=== PATIENT | female | born 1955 | race Caucasian/White ===

== ENCOUNTER 2021-11-15 07:58 | Inpatient (IN) | payer MEDICAID ==
[~2021-11-15] VITALS: Ht 170.2 cm; Wt 118.4 kg
--- NOTE | 2021-11-15 07:58 | NUR ---
PT BIBRA 88 FROM HOME C/O ALTERED MENTAL STATUS. LAST KNOWN WELL LAST NIGHT UNKNOWN TIME. PT IS AAOX0, NOT IN RESPIRATORY DISTRESS, HOOKED TO O2 VIA NC AT 4LPM AND V/S MONITOR, KEPT RESTED AND COMFORTABLE. WILL CONTINUE TO MONITOR.
--- NOTE | 2021-11-15 08:00 | NUR ---
AT BEDSIDE FOR EVAL.
--- NOTE | 2021-11-15 08:01 | NUR ---
CALLED CODE STROKE
[2021-11-15] MEDS ORDERED: LORAZEPAM INJ 2 MG/ML VIAL IV ONE ×3 (08:02→08:55)
[2021-11-15] MEDS ORDERED: LORAZEPAM INJ 2 MG/ML VIAL ONE ×3 (08:03→08:56)
--- NOTE | 2021-11-15 08:05 | NUR ---
CALLED TELEMED NEUROLOGIST WILL BE DR. CHRISTY KHAN
--- NOTE | 2021-11-15 08:09 | NUR ---
DR. KHAN SPEAKING WITH DONALDO MESA.
--- NOTE | 2021-11-15 08:13 | NUR ---
CALLED FOR MIDLINE
[2021-11-15] MEDS ORDERED: ONDANSETRON HCL/PF 4 MG/2 ML VIAL ONE (08:19)
--- NOTE | 2021-11-15 08:19 | NUR ---
MIDLINE ETA 1030
--- NOTE | 2021-11-15 08:20 | NUR ---
DR. RONQUILLO SPEAKING WITH DONALDO MESA.
[2021-11-15] MEDS ORDERED: ATOR10TA PO (08:22)
[2021-11-15] MEDS ORDERED: METF-440 PO (08:22)
[2021-11-15] MEDS ORDERED: LEVE500T9 PO (08:22)
[2021-11-15] MEDS ORDERED: DEXA4TAB PO (08:22)
[2021-11-15] MEDS ORDERED: AMLO2.5T4 PO (08:22)
--- NOTE | 2021-11-15 08:27 | NUR ---
MOVE SHEET SUBMITTED.
[2021-11-15 08:29] LABS: BASOPHILS % (AUTO) 0.3 % (0.0-2.0); EOSINOPHILS % (AUTO) 0.1 % (0.0-6.0); HEMATOCRIT 42 % (33-45); HEMOGLOBIN 13.8 g/dL (11.5-14.8); LYMPHOCYTES # (AUTO) 4.4 K/uL (0.8-4.8); LYMPHOCYTES % (AUTO) 37.4 % (20.0-44.0); MEAN CORPUSCULAR HGB CONC 33 g/dl (31.0-36.0); MEAN CORPUSCULAR VOLUME 95 fL (82-100); MONOCYTES # (AUTO) 0.7 K/uL (0.1-1.30); MONOCYTES % (AUTO) 6.2 % (2.0-12.0); NEUTROPHILS # (AUTO) 6.5 K/uL (1.8-8.9); PLATELET COUNT (AUTO) 310 K/uL (150-450); RED BLOOD CELL COUNT(AUTO) 4.41 MIL/uL (4.0-5.2); WHITE BLOOD COUNT (AUTO) 11.7 K/uL (4.3-11.0)
[2021-11-15] MEDS ORDERED: ONDANSETRON HCL/PF 4 MG/2 ML VIAL IVP ONE (08:30)
[2021-11-15] MEDS ORDERED: IV NS 0.9% 1,000 ML BAG IV ONE ×2 (08:30→09:00)
--- NOTE | 2021-11-15 08:30 | NUR ---
PT RECTAL TEMP 99.4F
[2021-11-15 08:46] LABS: CARBON DIOXIDE 29 mmol/L (21-32); CHLORIDE 100 mmol/L (98-107); CREATININE 1.1 mg/dL (0.6-1.3); POTASSIUM 3.6 mmol/L (3.5-5.1); SODIUM SERUM 137 mmol/L (136-145); UREA NITROGEN, BLOOD 15 mg/dL (7-18)
--- NOTE | 2021-11-15 08:48 | NUR ---
LAB CALLED BG [phone] RN WILVER NOTIFIED.
--- NOTE | 2021-11-15 08:50 | NUR ---
CANDIS IS [facility] [phone]
[2021-11-15 08:51] LABS: ALANINE AMINOTRANSFERASE 36 U/L (12-78); ALBUMIN 3.3 g/dL (3.4-5.0); ALKALINE PHOSPHATASE 87 U/L (46-116); ASPARTATE AMINOTRANSFERASE 15 U/L (15-37); BILIRUBIN,DIRECT 0.2 mg/dL (0.0-0.2); BILIRUBIN,TOTAL 0.5 mg/dL (0.2-1.0); TOTAL PROTEIN, SERUM 7.1 g/dL (6.4-8.2)
--- NOTE | 2021-11-15 08:52 | NUR ---
COVID ANTIGEN SWAB DONE AND SENT TO THE LAB
[2021-11-15 08:54] LABS: GLUCOSE 419 mg/dL (74-106)
[2021-11-15] MEDS ORDERED: LEVETIRACETAM IV ONE (09:00)
[2021-11-15] MEDS ORDERED: NS 0.9% IV ONE (09:00)
[2021-11-15] MEDS ORDERED: POTASSIUM CL. PREMIX PERIPHER. 100 ML ONE (09:11)
[2021-11-15] MEDS: POTASSIUM CL. PREMIX PERIPHER. 50 ML IV SCH ×2 (09:15→10:16)
[2021-11-15] MEDS ORDERED: DOCU-141 PO (09:16)
[2021-11-15] MEDS ORDERED: FAMO20TA8 PO (09:16)
[2021-11-15] MEDS ORDERED: INSULIN REGULAR, HUMAN 100 UNIT/ML 10 ML VIAL IV ONE (09:30)
[2021-11-15] MEDS ORDERED: INSULIN REGULAR, HUMAN 100 UNIT/ML 10 ML VIAL ONE (09:30)
[2021-11-15] MEDS ORDERED: POTASSIUM CL. PREMIX PERIPHER. 50 ML IV SCH (09:30)
--- NOTE | 2021-11-15 09:48 | NUR ---
[facility] CALLED WIRE WHEELER PAGED.
[2021-11-15] MEDS ORDERED: ACETAMINOPHEN 325 MG TABLET PO PRN (10:00)
[2021-11-15] MEDS ORDERED: LORAZEPAM INJ 2 MG/ML VIAL IV PRN (10:00)
[2021-11-15] MEDS ORDERED: ONDANSETRON HCL/PF 4 MG/2 ML VIAL IVP PRN (10:00)
[2021-11-15] MEDS ORDERED: DEXTROSE 50%-WATER 50 ML DISP.SYRIN IV PRN (10:00)
--- NOTE | 2021-11-15 10:00 | NUR ---
SEEN BY CARMELITA PAT
--- NOTE | 2021-11-15 10:33 | NUR ---
MID LINE RN AT BEDSIDE.
[2021-11-15 10:48] LABS: BILIRUBIN,URINE NEGATIVE (NEGATIVE); COLOR,URINE YELLOW (YELLOW); LEUKOCYTE ESTERASE ,URINE NEGATIVE (NEGATIVE); NITRITE, URINE NEGATIVE (NEGATIVE); PROTEIN,URINE NEGATIVE (NEGATIVE); UGLUCOSE >=1000 mg/dL (NEGATIVE); UROBILINOGEN,URINE 0.2 EU/dL (0.2)
[2021-11-15 11:47] LABS: RBC,URINE NONE SEEN /HPF (0-2); WBC,URINE NONE SEEN /HPF (0-3)
[2021-11-15 11:48] LABS: BACTERIA,URINE None seen /HPF (None Seen); SQUAMOUS EPITHELIAL CELL,UR None Seen /HPF (None Seen)
[2021-11-15] MEDS ORDERED: AZITHROMYCIN 500 MG in IV D5W 250 ML IV ONE (12:00)
[2021-11-15] MEDS ORDERED: CEFTRIAXONE 1GM BAG (ER ONLY) 1 GM/50 ML PIGGYBACK IV ONE (12:00)
[2021-11-15] MEDS ORDERED: CEFTRIAXONE 1GM BAG (ER ONLY) 50 ML IV ONE (12:18)
[2021-11-15] MEDS: BLOOD SUGAR DIAGNOSTIC 1 EACH STRIP IN SCH (13:00)
[2021-11-15] MEDS: INSULIN REGULAR, HUMAN 100 UNIT/ML 3 ML VIAL SQ PRN (13:00)
[2021-11-15] MEDS ORDERED: ENOXAPARIN SODIUM 40 MG/0.4 ML DISP.SYRIN SQ ONE (13:08)
[2021-11-15] MEDS: ENOXAPARIN SODIUM 40 MG/0.4 ML DISP.SYRIN SQ SCH (13:12)
--- NOTE | 2021-11-15 13:13 | NUR ---
PATIENT STILL SLEEPY BUT OPENS EYES WHEN NAME IS CALLED
--- NOTE | 2021-11-15 13:53 | NUR ---
1400 ML URINE OUTPUT
[2021-11-15] MEDS: IV NS 0.9% 1,000 ML IV PRN (14:05)
--- NOTE | 2021-11-15 14:42 | NUR ---
PER HOUSE SUP NO ROOM AVAILABLE FOR ADMISSION.
--- NOTE | 2021-11-15 17:56 | NUR ---
DAUGHTER CANDIS CALLED FOR UPDATE
--- NOTE | 2021-11-15 18:32 | NUR ---
ROOM 107-2
--- NOTE | 2021-11-15 18:54 | NUR ---
PER NURSING SUP TO GIVE REPORT AFTER CHANGE OF SHIFT
--- NOTE | 2021-11-15 19:57 | NUR ---
REPORT GIVEN TO NURSE CARREON FOR VIRA
--- NOTE | 2021-11-15 19:58 | NUR ---
MIDLINE NURSE ETA 2200 PER NURSE SUPV
[2021-11-15 20:00] VITALS: BP 105/63
--- NOTE | 2021-11-15 20:10 | NUR ---
2009 ADMITTED FROM ER 66 YEAR OLD FEMALE VIA [place] WITH DX OF BREAKTHROUGH SEIZURE. PATIENT WITH EYES CLOSED BUT OPEN EASILY WHEN NAME CALLED. ABLE TO FOLLOW SIMPLE COMMANDS. ON ROOM AIR WITH NO SIGNS OF DISTRESS NOTED. ADMISSION CARE RENDERED. SKIN ASSESSMENT DONE. NOTED WITH MULTIPLE BRUISING ON LEFT ARM, AND EXCORIATION ON PERINEAL AREA. NO IV ACCESS NOTED ON PATIENT AND PER REPORT PATIENT PULLED OUT IV LINES IN ER. AWAITING MIDLINE INSERTION. CONNECTED TO HUMAN RESOURCE STATISTICIAN. NSR IN THE 60S. ALL SIDE RAILS PADDED FOR SEIZURE PRECAUTION. HOB ELEVATED AND CALLED LIGHT PLACED WITHIN REACH.
[2021-11-16] VITALS: BP 120/82
[2021-11-16] MEDS: BLOOD SUGAR DIAGNOSTIC 1 EACH STRIP IN SCH ×6 (00:27→22:51)
[2021-11-16] MEDS: INSULIN REGULAR, HUMAN 100 UNIT/ML 3 ML VIAL SQ PRN ×5 (00:33→22:44)
--- NOTE | 2021-11-16 00:34 | NUR ---
RN NOTE PT BS WAS 198. WITHHELD INSULIN SINCE PTS IS NPO AND HAS NO IV FLUIDS. CHARGE NURSE INFORMED AND AWARE.
[2021-11-16 04:00] VITALS: BP 119/86
[2021-11-16 06:21] LABS: BASOPHILS # (AUTO) 0.1 K/uL (0.0-0.2); BASOPHILS % (AUTO) 0.7 % (0.0-2.0); EOSINOPHILS % (AUTO) 0.7 % (0.0-6.0); HEMATOCRIT 38 % (33-45); HEMOGLOBIN 12.7 g/dL (11.5-14.8); LYMPHOCYTES # (AUTO) 3.3 K/uL (0.8-4.8); LYMPHOCYTES % (AUTO) 38.9 % (20.0-44.0); MEAN CORPUSCULAR HGB CONC 34 g/dl (31.0-36.0); MEAN CORPUSCULAR VOLUME 93 fL (82-100); MONOCYTES # (AUTO) 0.7 K/uL (0.1-1.30); MONOCYTES % (AUTO) 7.7 % (2.0-12.0); NEUTROPHILS # (AUTO) 4.4 K/uL (1.8-8.9); PLATELET COUNT (AUTO) 274 K/uL (150-450); RED BLOOD CELL COUNT(AUTO) 4.05 MIL/uL (4.0-5.2); WHITE BLOOD COUNT (AUTO) 8.5 K/uL (4.3-11.0)
[2021-11-16] MEDS ORDERED: INSULIN REGULAR, HUMAN 100 UNIT/ML 3 ML VIAL ONE (06:27)
[2021-11-16 06:59] LABS: CALCIUM, SERUM 8.4 mg/dL (8.5-10.1); CREATININE 0.8 mg/dL (0.6-1.3); MAGNESIUM 1.9 mg/dL (1.8-2.4); PHOSPHORUS 3.8 mg/dL (2.5-4.9)
--- NOTE | 2021-11-16 07:01 | NUR ---
RN CLOSING NOTE NO SIGNIFICANT CHANGE THROUGHOUT THE SHIFT. PT IN BED, A/O X 1. PT SPEAKS A DIFFERENT LANGUAGE BUT CAN RESPOND WHEN ASKED ABOUT HER NAME. PT REMOVED ALL HER IV LINES. STILL WAITING FOR THE MIDLINER. PT IS NPO. ON CARSON CATHETER DRAINING BY GRAVITY WITH YELLOW URINE. ALL NEEDS ATTENDED TO. SAFETY MEASURES IMPLEMENTED. BED IN LOWEST POSITION, LOCKED. BED ALARM ON. WILL ENDORSE TO AM SHIFT NURSE FOR VIRA.
--- NOTE | 2021-11-16 07:27 | NUR ---
zhane rn note patient in bed resting comfortably at this time, on 4l nc no sob noted at this time, alert with confusion , on npo status s at this time, bed in lowest and locked position , call light within reach, will cont to monitor closely
[2021-11-16 08:00] VITALS: BP 168/96
[2021-11-16] MEDS: IV NS 0.9% 1,000 ML IV PRN ×2 (09:49→23:50)
--- NOTE | 2021-11-16 10:15 | NUR ---
zhane rn note midline inserted lt upper arm by piccline nurse, ivf started as ordered
--- NOTE | 2021-11-16 10:29 | NUR ---
zhane stafford per bibiana rodriguez to give diet Addendum: 11/16/21 at 1151 by TERRY TRAMMELL RN per Maureen rodriguez to start diet
--- NOTE | 2021-11-16 11:52 | NUR ---
television reporter note spoke with pharmacy notified that k 3.0 stated that will to replace , will f\u
[2021-11-16 12:00] VITALS: BP 108/60
[2021-11-16] MEDS: ENOXAPARIN SODIUM 40 MG/0.4 ML DISP.SYRIN SQ SCH (12:46)
[2021-11-16] MEDS: POTASSIUM CHLORIDE 20 MEQ TAB.PRT.SR PO SCH ×3 (12:46→15:18)
[2021-11-16] MEDS: AMLODIPINE BESYLATE 2.5 MG TABLET PO SCH (13:30)
[2021-11-16] MEDS ORDERED: DEXTROSE 50%-WATER 50 ML DISP.SYRIN IV PRN (13:30)
[2021-11-16] MEDS: FAMOTIDINE (20 MG) 20 MG TABLET PO SCH ×2 (14:13→17:22)
[2021-11-16] MEDS: DOCUSATE SODIUM 100 MG CAPSULE PO SCH ×2 (14:13→17:23)
[2021-11-16] MEDS: LEVETIRACETAM (250 MG) 250 MG TABLET PO SCH ×3 (14:27→21:51)
[2021-11-16 16:00] VITALS: BP 161/86
[2021-11-16] MEDS: DEXAMETHASONE 1 MG TABLET PO SCH (17:22)
[2021-11-16] MEDS: METFORMIN 500 MG TABLET PO SCH (17:23)
--- NOTE | 2021-11-16 17:29 | NUR ---
rn telehealth note dr stokes neurologist at bedside updated patient condition ordered changed Keppra 1500mg q12 hour and egg also notified that ltb yey with drainage and inflamed, Maureen Sampson notified also that lt eye inflamed and small drainage noted stated that will order something will f\u
[2021-11-16] MEDS: ATORVASTATIN 10 MG TABLET PO SCH (18:11)
[2021-11-16] MEDS: TOBRAMYCIN OPHTH 5ML 5 ML BOTTLE LEFTEYE SCH ×2 (18:50→21:17)
--- NOTE | 2021-11-16 18:50 | NUR ---
telemarketing agent note eeg at bedside family at bedside, all needs attended
--- NOTE | 2021-11-16 19:50 | NUR ---
RN NOTE PATIENT RESTING IN BED, OPENS EYES TO NAME. ON ROOM AIR, NO SOB NOTED. RESPIRATIONS EVEN AND UNLABORED. DENIES ANY PAIN. CARSON CATH IN PLACE, DRAINING VIA GRAVITY. IV ACCESS ON LEFT ARM MIDLINE, PATENT AND INTACT. WITH NS @ 75CC/HR. NO INFILTRATION NOTED. BED LOCKED AND IN LOWEST POSITION. CALL LIGHT WITHIN REACH. ALL NEEDS ANTICIPATED.
[2021-11-16 20:00] VITALS: BP 184/101
[2021-11-16] MEDS: MUPIROCIN OINT 2% 22 GM TUBE TP SCH (21:15)
[2021-11-16] MEDS: hydrALAZINE HCL IV 20 MG VIAL IV PRN (23:45)
[2021-11-17] VITALS: BP 177/96
[2021-11-17] MEDS: TOBRAMYCIN OPHTH 5ML 5 ML BOTTLE LEFTEYE SCH ×6 (00:51→20:59)
[2021-11-17 04:00] VITALS: BP 158/92
[2021-11-17 06:31] LABS: CALCIUM, SERUM 7.9 mg/dL (8.5-10.1); CREATININE 0.9 mg/dL (0.6-1.3); MAGNESIUM 1.7 mg/dL (1.8-2.4); POTASSIUM 3.3 mmol/L (3.5-5.1)
[2021-11-17 06:45] LABS: BASOPHILS # (AUTO) 0.1 K/uL (0.0-0.2); BASOPHILS % (AUTO) 0.7 % (0.0-2.0); EOSINOPHILS % (AUTO) 0.1 % (0.0-6.0); HEMATOCRIT 40 % (33-45); HEMOGLOBIN 13.1 g/dL (11.5-14.8); LYMPHOCYTES # (AUTO) 2.6 K/uL (0.8-4.8); LYMPHOCYTES % (AUTO) 30.5 % (20.0-44.0); MEAN CORPUSCULAR HGB CONC 33 g/dl (31.0-36.0); MEAN CORPUSCULAR VOLUME 93 fL (82-100); MONOCYTES # (AUTO) 0.8 K/uL (0.1-1.30); MONOCYTES % (AUTO) 8.8 % (2.0-12.0); NEUTROPHILS # (AUTO) 5.2 K/uL (1.8-8.9); NEUTROPHILS % (AUTO) 59.9 % (43.0-81.0); PLATELET COUNT (AUTO) 315 K/uL (150-450); RED BLOOD CELL COUNT(AUTO) 4.27 MIL/uL (4.0-5.2); WHITE BLOOD COUNT (AUTO) 8.6 K/uL (4.3-11.0)
--- NOTE | 2021-11-17 06:51 | NUR ---
RN NOTE PATIENT RESTING IN BED, OPENS EYES TO NAME. ON ROOM AIR, NO SOB NOTED. NO SIGNIFICANT CHANGES DURING THIS SHIFT. CARSON CATH IN PLACE, OUTPUT OF 1000CC. IV ACCESS ON LEFT ARM MIDLINE, PATENT AND INTACT, INFUSING NS @ 75CC/HR. TURNED AND REPOSITIONED. KEPT CLEAN AND DRY. BED LOCKED AND IN LOWEST POSITION. CALL LIGHT WITHIN REACH. WILL ENDORSE TO AM SHIFT.
[2021-11-17 08:00] VITALS: BP 150/87
--- NOTE | 2021-11-17 08:00 | NUR ---
RN OPENING NOTE PATIENT RESTING IN BED, OPENS EYES TO NAME. ON ROOM AIR, NO SOB NOTED. RESPIRATIONS EVEN AND UNLABORED. DENIES ANY PAIN. CARSON CATH IN PLACE, DRAINING VIA GRAVITY. IV ACCESS ON LEFT ARM MIDLINE, PATENT AND INTACT. WITH NS @ 75CC/HR. NO INFILTRATION NOTED. BILATERAL WRIST RESTRAINTS ON CIRCULATION CHECKED NO COMPROMISE NOTED, BED LOCKED AND IN LOWEST POSITION. CALL LIGHT WITHIN REACH.
[2021-11-17] MEDS: BLOOD SUGAR DIAGNOSTIC 1 EACH STRIP IN SCH ×4 (08:22→21:05)
--- NOTE | 2021-11-17 08:33 | NUR ---
RN NOTE PATIENT NOTED TO HAVE 2 KEPPRA ORDERS AT 0900. CALLED PHARMACY PER PHARMACIST FOLLOW ORDER FOR KEPPRA 6TABLES. ORDERS FOLLOWED
[2021-11-17] MEDS: DOCUSATE SODIUM 100 MG CAPSULE PO SCH ×2 (08:39→17:18)
[2021-11-17] MEDS: FAMOTIDINE (20 MG) 20 MG TABLET PO SCH ×2 (08:39→17:18)
[2021-11-17] MEDS: METFORMIN 500 MG TABLET PO SCH ×2 (08:39→17:18)
[2021-11-17] MEDS: DEXAMETHASONE 1 MG TABLET PO SCH ×2 (08:39→17:18)
[2021-11-17] MEDS: AMLODIPINE BESYLATE 2.5 MG TABLET PO SCH (08:39)
[2021-11-17] MEDS: MUPIROCIN OINT 2% 22 GM TUBE TP SCH ×2 (08:40→20:59)
[2021-11-17] MEDS: LEVETIRACETAM (250 MG) 250 MG TABLET PO SCH ×2 (08:40→20:58)
[2021-11-17] MEDS: INSULIN REGULAR, HUMAN 100 UNIT/ML 3 ML VIAL SQ PRN ×4 (08:48→21:05)
[2021-11-17] MEDS ORDERED: POTASSIUM CHLORIDE 20 MEQ TAB.PRT.SR PO SCH (09:30)
[2021-11-17] MEDS: Magnesium 1GM/D5W 100ML PREMIX 100 ML IV SCH ×2 (10:24→11:26)
[2021-11-17 12:00] VITALS: BP 146/82
[2021-11-17] MEDS: ENOXAPARIN SODIUM 40 MG/0.4 ML DISP.SYRIN SQ SCH (13:18)
[2021-11-17 16:00] VITALS: BP 172/96
[2021-11-17] MEDS ORDERED: GADOTERATE MEGLUMINE 5 MMOL/10 ML VIAL IV ONE (17:09)
[2021-11-17] MEDS ORDERED: GADOTERATE MEGLUMINE 10 MMOL/20 ML VIAL IV ONE (17:09)
[2021-11-17] MEDS: ATORVASTATIN 10 MG TABLET PO SCH (17:18)
[2021-11-17] MEDS: IV NS 0.9% 1,000 ML IV PRN (18:12)
--- NOTE | 2021-11-17 19:15 | NUR ---
RN NOTE PT RECEIVED IN BED, FAMILY AT BEDSIDE. PT IS CURRENTLY ON RA SHOWING NO S/SX OF RESP DISTRESS/SOB. BREATHING EVEN AND UNLABORED. PT IS CONFUSED, A/OX1. ON SAW OFFBEARER SHOWING NSR. CARSON CATH NOTED DRAINING YELLOW COLORED URINE. IV ACCESS NOTED ON LEFT UPPER ARM ML INFUSING 0.9% NS AT 75 CC/HR. LINE FLUSHED, PATENT, AND INTACT WITH NO SIGNS OF INFILTRATION. ALL SAFETY MEASURES IMPLEMENTED. HOB ELEVATED. CALL LIGHT WITHIN REACH. BED LOCKED AND IN LOWEST POSITION. WILL CONTINUE TO MONITOR AND ASSESS FOR ANY CHANGES DURING SHIFT.
--- NOTE | 2021-11-17 19:15 | NUR ---
RN CLOSING NOTE NO SIGNIFICANT CHANGE THROUGHOUT THE SHIFT. PT IN BED, A/O X 1. PT SPEAKS A DIFFERENT LANGUAGE BUT CAN RESPOND WHEN ASKED ABOUT HER NAME. PT REMOVED ALL HER IV LINES. STILL WAITING FOR THE MIDLINER. . ON CARSON CATHETER DRAINING BY GRAVITY WITH YELLOW URINE. ALL NEEDS ATTENDED TO. SAFETY MEASURES IMPLEMENTED. BED IN LOWEST POSITION, LOCKED. BED ALARM ON. WILL ENDORSE TO AM SHIFT NURSE FOR VIRA.
[2021-11-17 20:00] VITALS: BP 185/129
[2021-11-17] MEDS: hydrALAZINE HCL IV 20 MG VIAL IV PRN (20:58)
[2021-11-18] VITALS: BP 163/84
[2021-11-18] MEDS: TOBRAMYCIN OPHTH 5ML 5 ML BOTTLE LEFTEYE SCH ×6 (01:16→20:13)
[2021-11-18 04:00] VITALS: BP 145/76
[2021-11-18 06:28] LABS: BASOPHILS % (AUTO) 0.3 % (0.0-2.0); HEMATOCRIT 37 % (33-45); HEMOGLOBIN 12.5 g/dL (11.5-14.8); LYMPHOCYTES # (AUTO) 1.5 K/uL (0.8-4.8); LYMPHOCYTES % (AUTO) 22.3 % (20.0-44.0); MEAN CORPUSCULAR HGB CONC 34 g/dl (31.0-36.0); MEAN CORPUSCULAR VOLUME 92 fL (82-100); MONOCYTES # (AUTO) 0.4 K/uL (0.1-1.30); MONOCYTES % (AUTO) 5.1 % (2.0-12.0); NEUTROPHILS % (AUTO) 72.3 % (43.0-81.0); PLATELET COUNT (AUTO) 303 K/uL (150-450); RED BLOOD CELL COUNT(AUTO) 3.95 MIL/uL (4.0-5.2); WHITE BLOOD COUNT (AUTO) 6.9 K/uL (4.3-11.0)
--- NOTE | 2021-11-18 06:43 | NUR ---
RN NOTE NO CHANGES IN PT CONDITION DURING SHIFT. PT IS CURRENTLY ON RA SHOWING NO S/SX OF RESP DISTRESS/SOB. BREATHING EVEN AND UNLABORED. IV ACCESS NOTED ON LEFT UPPER ARM ML INFUSING 0.9% NS AT 75 CC/HR. ALL SAFETY MEASURES IMPLEMENTED. HOB ELEVATED. CALL LIGHT WITHIN REACH. BED LOCKED AND IN LOWEST POSITION. ALL DUE MEDS GIVEN ORDERED. WILL ENDORSE TO MORNING SHIFT RN FOR VIRA.
[2021-11-18 07:12] LABS: CALCIUM, SERUM 8.3 mg/dL (8.5-10.1); CREATININE 0.9 mg/dL (0.6-1.3); MAGNESIUM 2.1 mg/dL (1.8-2.4); PHOSPHORUS 2.8 mg/dL (2.5-4.9); POTASSIUM 3.5 mmol/L (3.5-5.1)
--- NOTE | 2021-11-18 07:32 | NUR ---
RN OPENING NOTES: RECEIVED PT IN BED, AWAKE ALERT X 1-2 WITH PERIODS OF CONFUSION, PT IS CURRENTLY ON RA SHOWING NO S/SX OF RESP DISTRESS/SOB. BREATHING EVEN AND UNLABORED. ON SALES ESTIMATOR SHOWING NSR. CARSON CATH NOTED DRAINING YELLOW COLORED URINE. IV ACCESS NOTED ON LEFT UPPER ARM ML INFUSING 0.9% NS AT 75 CC/HR. LINE FLUSHED, PATENT, AND INTACT WITH NO SIGNS OF INFILTRATION. ALL SAFETY MEASURES IMPLEMENTED. HOB ELEVATED. CALL LIGHT WITHIN REACH. BED LOCKED AND IN LOWEST POSITION. WILL CONTINUE TO MONITOR
[2021-11-18 08:00] VITALS: BP 170/100
[2021-11-18] MEDS: BLOOD SUGAR DIAGNOSTIC 1 EACH STRIP IN SCH ×4 (08:18→21:22)
[2021-11-18] MEDS: INSULIN REGULAR, HUMAN 100 UNIT/ML 3 ML VIAL SQ PRN ×4 (08:21→21:24)
[2021-11-18] MEDS: IV NS 0.9% 1,000 ML IV PRN (08:35)
[2021-11-18] MEDS: AMLODIPINE BESYLATE 2.5 MG TABLET PO SCH (08:36)
[2021-11-18] MEDS: METFORMIN 500 MG TABLET PO SCH ×2 (08:37→16:57)
[2021-11-18] MEDS: DEXAMETHASONE 1 MG TABLET PO SCH ×2 (08:37→16:59)
[2021-11-18] MEDS: DOCUSATE SODIUM 100 MG CAPSULE PO SCH ×2 (08:37→16:59)
[2021-11-18] MEDS: LEVETIRACETAM (250 MG) 250 MG TABLET PO SCH ×2 (08:37→20:13)
[2021-11-18] MEDS: FAMOTIDINE (20 MG) 20 MG TABLET PO SCH ×2 (08:37→16:56)
[2021-11-18] MEDS: MUPIROCIN OINT 2% 22 GM TUBE TP SCH ×2 (08:38→20:13)
[2021-11-18 12:00] VITALS: BP 154/95
[2021-11-18] MEDS: ENOXAPARIN SODIUM 40 MG/0.4 ML DISP.SYRIN SQ SCH (13:07)
[2021-11-18 16:00] VITALS: BP 166/94
[2021-11-18] MEDS: ATORVASTATIN 10 MG TABLET PO SCH (17:44)
--- NOTE | 2021-11-18 19:30 | NUR ---
RN CLOSING NOTES: . PT IN BED, A/O X2-3..LEFT UPPER ARM MIDLINE INTACT PATENT WITH IVF OF NS AT 75CC/HR . PATIENT INSISTED TO GO TO BATHROOM ASSISTED HER TO THE BATHROOM WAS ABLE TO WALK WITH WALKER AND HAD BM . ON CARSON CATHETER DRAINING BY GRAVITY WITH YELLOW URINE. ALL NEEDS ATTENDED TO. SAFETY MEASURES IMPLEMENTED. BED IN LOWEST POSITION, LOCKED. BED ALARM ON. WILL ENDORSE TO DATA COMMUNICATIONS TECHNICIAN NURSE FOR VIRA.
[2021-11-18 20:26] VITALS: BP 137/91
[2021-11-19] VITALS: BP 123/68
[2021-11-19] MEDS: IV NS 0.9% 1,000 ML IV PRN (00:56)
[2021-11-19] MEDS: TOBRAMYCIN OPHTH 5ML 5 ML BOTTLE LEFTEYE SCH ×6 (00:57→21:59)
[2021-11-19 04:00] VITALS: BP 143/76
--- NOTE | 2021-11-19 05:57 | NUR ---
RN CLOSING NOTE PATIENT IS RESTING IN BED. A/OX2, DELAYED SPEECH. TOLERATING ROOM AIR. RESPIRATIONS ARE EVEN AND UNLABORED. NO COMPLAINTS OF PAIN. SINUS RHYTHM ON THE MONITOR. NS@75. NO BREAK THROUGH SEIZURES NOTED. NO VM. CARSON CATHETER MAINTAINED. OUTPUT 1000ML. PENDING TRANSFER TO HIGHER LEVEL OF CARE. BED IS LOW AND LOCKED, HOB ELEVATED IN SEMI FOWLERS, SIDE RIALS UPX3, PADDED, BED ALARM ON. CALL LIGHT WITHIN REACH. WILL ENDORSE TO ONCOMING SHIFT. Addendum: 11/19/21 at 0619 by SARAH RUIZ RN URINE OUTPUT TOTAL IS 3600ML
[2021-11-19 07:00] LABS: BASOPHILS # (AUTO) 0.1 K/uL (0.0-0.2); BASOPHILS % (AUTO) 0.8 % (0.0-2.0); EOSINOPHILS % (AUTO) 0.6 % (0.0-6.0); HEMATOCRIT 35 % (33-45); HEMOGLOBIN 11.6 g/dL (11.5-14.8); LYMPHOCYTES % (AUTO) 27.6 % (20.0-44.0); MEAN CORPUSCULAR HGB CONC 34 g/dl (31.0-36.0); MEAN CORPUSCULAR VOLUME 93 fL (82-100); MONOCYTES # (AUTO) 0.4 K/uL (0.1-1.30); MONOCYTES % (AUTO) 5.5 % (2.0-12.0); NEUTROPHILS # (AUTO) 4.8 K/uL (1.8-8.9); NEUTROPHILS % (AUTO) 65.5 % (43.0-81.0); PLATELET COUNT (AUTO) 251 K/uL (150-450); WHITE BLOOD COUNT (AUTO) 7.4 K/uL (4.3-11.0)
[2021-11-19 07:18] LABS: CREATININE 0.9 mg/dL (0.6-1.3); MAGNESIUM 1.9 mg/dL (1.8-2.4); PHOSPHORUS 3.2 mg/dL (2.5-4.9); POTASSIUM 3.8 mmol/L (3.5-5.1)
--- NOTE | 2021-11-19 07:30 | NUR ---
NAIL KEGGER AM NOTE PATIENT IN BED, AOX 2, DELAYED RESPONSE/SPEECH. PERIODS OF CONFUSION. FORGETFUL. ON ROOM AIR. O2 SAT 99%, RESPIRATIONS UNLABORED. NO COMPLAINTS OF PAIN. SINUS RHYTHM ON THE MONITOR. HR 76. NS@75 INFUSING TO LORI MIDLINE, SITE CLEAR. NO SEIZURES, CARSON CATHETER IN PLACE, DRAINING VIA GRAVITY. PATENT/INTACT. CARDIAC DIET. BRP, PENDING TRANSFER TO HIGHER LEVEL OF CARE [USC]. BED IS LOW AND LOCKED, HOB ELEVATED IN SEMI FOWLERS, SIDE RAILS UPX3, PADDED, BED ALARM ON. CALL LIGHT WITHIN REACH. WILL CONT TO MONITOR.
[2021-11-19] MEDS: BLOOD SUGAR DIAGNOSTIC 1 EACH STRIP IN SCH ×4 (07:55→22:34)
[2021-11-19 08:00] VITALS: BP 141/73
[2021-11-19] MEDS: LEVETIRACETAM (250 MG) 250 MG TABLET PO SCH ×2 (08:25→21:58)
[2021-11-19] MEDS: METFORMIN 500 MG TABLET PO SCH ×2 (08:25→17:11)
[2021-11-19] MEDS: DOCUSATE SODIUM 100 MG CAPSULE PO SCH ×2 (08:25→17:11)
[2021-11-19] MEDS: DEXAMETHASONE 1 MG TABLET PO SCH ×2 (08:25→17:11)
[2021-11-19] MEDS: FAMOTIDINE (20 MG) 20 MG TABLET PO SCH ×2 (08:25→17:12)
[2021-11-19] MEDS: AMLODIPINE BESYLATE 2.5 MG TABLET PO SCH (08:25)
[2021-11-19] MEDS: INSULIN REGULAR, HUMAN 100 UNIT/ML 3 ML VIAL SQ PRN ×4 (08:28→22:14)
[2021-11-19] MEDS: MUPIROCIN OINT 2% 22 GM TUBE TP SCH ×2 (08:35→21:58)
--- NOTE | 2021-11-19 09:30 | NUR ---
RN NOTES DUE MEDS GIVEN
[2021-11-19 12:00] VITALS: BP 141/77
[2021-11-19] MEDS: ENOXAPARIN SODIUM 40 MG/0.4 ML DISP.SYRIN SQ SCH (12:08)
[2021-11-19 16:00] VITALS: BP 135/73
[2021-11-19] MEDS: ATORVASTATIN 10 MG TABLET PO SCH (17:11)
--- NOTE | 2021-11-19 18:21 | NUR ---
INDUSTRIAL EQUIPMENT WIRER CLOSING NOTE PATIENT IN BED, ASLEEP, RESPONDS TO NAME AND TOUCH, DAUGHTER AT BEDSIDE. AOX 2, DELAYED RESPONSE/SPEECH. PERIODS OF CONFUSION. FORGETFUL. ON ROOM AIR. O2 SAT 99%, RESPIRATIONS UNLABORED. NO COMPLAINTS OF PAIN. SINUS RHYTHM ON THE MONITOR. HR 69. NS@75 INFUSING TO LORI MIDLINE, SITE CLEAR. NO SEIZURES, CARSON CATHETER IN PLACE, DRAINING VIA GRAVITY. PATENT/INTACT. WITH 2125 ML OUTPUT. CARDIAC DIET. BRP, PENDING TRANSFER TO HIGHER LEVEL OF CARE [US]. BED IS LOW AND LOCKED, HOB ELEVATED IN SEMI FOWLERS, SIDE RAILS UPX3, PADDED, BED ALARM ON. CALL LIGHT WITHIN REACH. ALL NEEDS MET. PM CARE DONE EARLIER. WILL ENDORSE TO NEXT SHIFT FOR VIRA.
--- NOTE | 2021-11-19 19:35 | NUR ---
RN OPENING NOTES RECEIVED PT IN BED, AWAKE ALERT X 1-2 WITH PERIODS OF CONFUSION, PT IS CURRENTLY ON RA BREATHING EVEN AND UNLABORED. ON INTERNATIONAL TRADE COMPLIANCE MANAGER SHOWING SR AT 84 BPM. CARSON CATH NOTED DRAINING YELLOW COLORED URINE. IV ACCESS ON LEFT UPPER ARM ML, FLUSHED, PATENT, AND INTACT WITH NO SIGNS OF INFILTRATION. HOB ELEVATED. CALL LIGHT WITHIN REACH. BED LOCKED AND IN LOWEST POSITION. WILL CONTINUE TO MONITOR
[2021-11-19 20:00] VITALS: BP 163/84
--- NOTE | 2021-11-19 22:00 | NUR ---
RN NOTE BS CHECKED AT 303 MG/DL, 8 UNITS OF INSUILIN GIVEN
[2021-11-20] VITALS: BP 146/72
[2021-11-20] MEDS: TOBRAMYCIN OPHTH 5ML 5 ML BOTTLE LEFTEYE SCH ×6 (00:35→22:19)
[2021-11-20 04:00] VITALS: BP 152/78
--- NOTE | 2021-11-20 06:55 | NUR ---
RN CLOSING NOTE PATIENT IN BED SLEEPING BUT EASILY AROUSABLE. AOX 3, ON ROOM AIR. O2 SAT 97%, RESPIRATIONS EVEN AND UNLABORED. NO COMPLAINTS OF PAIN. SINUS RHYTHM ON THE MONITOR. HR 62. WITH LORI MIDLINE, SITE CLEAR. NO SEIZURES, CARSON CATHETER IN PLACE, DRAINING VIA GRAVITY. PATENT AND INTACT. WITH 1850 ML OUTPUT. CARDIAC DIET. ALL DUE MEDS GIVEN PER MD ORDER, PICTURES TAKEN AND PLACE ON CHART, KEPT DRY AND CLEAN, CALL LIGHT WITHIN REACH, BED IS LOW AND LOCKED, SIDE RAILS UPX3, PADDED, WILL ENDORSE TO AM SHIFT NURSE.
[2021-11-20 07:08] LABS: BASOPHILS # (AUTO) 0.1 K/uL (0.0-0.2); BASOPHILS % (AUTO) 1.1 % (0.0-2.0); EOSINOPHILS % (AUTO) 0.3 % (0.0-6.0); HEMATOCRIT 35 % (33-45); HEMOGLOBIN 12.1 g/dL (11.5-14.8); LYMPHOCYTES # (AUTO) 2.7 K/uL (0.8-4.8); LYMPHOCYTES % (AUTO) 35.5 % (20.0-44.0); MEAN CORPUSCULAR HGB CONC 34 g/dl (31.0-36.0); MEAN CORPUSCULAR VOLUME 93 fL (82-100); MONOCYTES # (AUTO) 0.4 K/uL (0.1-1.30); MONOCYTES % (AUTO) 5.6 % (2.0-12.0); NEUTROPHILS # (AUTO) 4.4 K/uL (1.8-8.9); NEUTROPHILS % (AUTO) 57.5 % (43.0-81.0); PLATELET COUNT (AUTO) 278 K/uL (150-450); RED BLOOD CELL COUNT(AUTO) 3.81 MIL/uL (4.0-5.2); WHITE BLOOD COUNT (AUTO) 7.7 K/uL (4.3-11.0)
--- NOTE | 2021-11-20 07:30 | NUR ---
INVESTMENT SALES ASSISTANT AM NOTE PATIENT IN BED, AOX 2, DELAYED RESPONSE/SPEECH. PERIODS OF CONFUSION. FORGETFUL. ON ROOM AIR. O2 SAT 99%, RESPIRATIONS UNLABORED. NO COMPLAINTS OF PAIN. SINUS RHYTHM ON THE MONITOR. HR 76. LORI MIDLINE, FLUSHES WELL, SITE CLEAR. NO SEIZURES, CARSON CATHETER IN PLACE, DRAINING VIA GRAVITY. PATENT/INTACT. CARDIAC DIET. BRP, PENDING TRANSFER TO HIGHER LEVEL OF CARE [US]. BED IS LOW AND LOCKED, HOB ELEVATED IN SEMI FOWLERS, SIDE RAILS UPX3, PADDED, BED ALARM ON. CALL LIGHT WITHIN REACH. WILL CONT TO MONITOR.
[2021-11-20] MEDS: BLOOD SUGAR DIAGNOSTIC 1 EACH STRIP IN SCH ×4 (07:44→22:20)
[2021-11-20 07:54] LABS: CALCIUM, SERUM 8.6 mg/dL (8.5-10.1); CREATININE 0.9 mg/dL (0.6-1.3); MAGNESIUM 1.6 mg/dL (1.8-2.4); PHOSPHORUS 3.4 mg/dL (2.5-4.9); POTASSIUM 3.5 mmol/L (3.5-5.1)
[2021-11-20 08:00] VITALS: BP 124/67
[2021-11-20] MEDS: DEXAMETHASONE 1 MG TABLET PO SCH ×2 (08:34→17:04)
[2021-11-20] MEDS: FAMOTIDINE (20 MG) 20 MG TABLET PO SCH ×2 (08:35→17:04)
[2021-11-20] MEDS: AMLODIPINE BESYLATE 2.5 MG TABLET PO SCH (08:35)
[2021-11-20] MEDS: METFORMIN 500 MG TABLET PO SCH ×2 (08:35→17:04)
[2021-11-20] MEDS: LEVETIRACETAM (250 MG) 250 MG TABLET PO SCH ×2 (08:35→22:19)
[2021-11-20] MEDS: DOCUSATE SODIUM 100 MG CAPSULE PO SCH ×2 (08:35→17:04)
[2021-11-20] MEDS: INSULIN REGULAR, HUMAN 100 UNIT/ML 3 ML VIAL SQ PRN ×4 (08:39→23:09)
[2021-11-20] MEDS: MUPIROCIN OINT 2% 22 GM TUBE TP SCH ×2 (08:44→22:19)
--- NOTE | 2021-11-20 09:30 | NUR ---
RN NOTES DUE MEDS GIVEN
[2021-11-20] MEDS ORDERED: MAGNESIUM OXIDE 400 MG TABLET PO ONE (10:00)
--- NOTE | 2021-11-20 11:20 | NUR ---
RN NOTES PATIENT SEEN BY DR. CHU. TALKED TO DR. KEMP. NO NEW ORDERS AT THIS TIME PER DR. CHU TO HAVE THE TEST DIRECTOR CALL HIM.
[2021-11-20 12:00] VITALS: BP 148/74
[2021-11-20] MEDS: ENOXAPARIN SODIUM 40 MG/0.4 ML DISP.SYRIN SQ SCH (12:11)
[2021-11-20 16:00] VITALS: BP 155/90
[2021-11-20] MEDS: ATORVASTATIN 10 MG TABLET PO SCH (17:04)
--- NOTE | 2021-11-20 18:42 | NUR ---
TITLE I PARAPROFESSIONAL CLOSING NOTE PATIENT IN BED, ASLEEP, RESPONDS TO NAME AND TOUCH, DAUGHTER AT BEDSIDE. AOX 2, DELAYED RESPONSE/SPEECH. PERIODS OF CONFUSION. FORGETFUL. ON ROOM AIR. O2 SAT 97%, RESPIRATIONS UNLABORED. NO COMPLAINTS OF PAIN. SINUS RHYTHM ON THE MONITOR. HR 72. LORI MIDLINE, FLUSHES WELL, CDI DRESSING, SITE CLEAR. NO SEIZURES, CARSON CATHETER IN PLACE, DRAINING VIA GRAVITY. PATENT/INTACT. WITH 1600 ML OUTPUT. CARDIAC DIET. BRP, PENDING TRANSFER TO HIGHER LEVEL OF CARE [US]. BED IS LOW AND LOCKED, HOB ELEVATED IN SEMI FOWLERS, SIDE RAILS UPX3, PADDED, BED ALARM ON. CALL LIGHT WITHIN REACH. ALL NEEDS MET. PM CARE DONE EARLIER. WILL ENDORSE TO NEXT SHIFT FOR VIRA.
--- NOTE | 2021-11-20 19:30 | NUR ---
RN OPENING NOTE PATIENT AWAKE IN BED W/ FAMILY AT BEDSIDE. A/OX2. NO S/S OF DISTRESS. NO S/S OF DISTRESS; BREATHING W/O DIFFICULTY ON RM AIR. LORI MIDLINE INTACT AND PATENT W/ NS 75ML/HR. TELE MONITOR REVEALS SR 83. SAFETY MEASURES IN PLACE: BED AT LOWEST POSITION, LOCKED, RAILS UP X3, CALL EDWARDS WITHIN REACH. WILL CONTINUE TO MONITOR PATIENT.
[2021-11-20 20:00] VITALS: BP 160/72
[2021-11-21] VITALS: BP 155/75
[2021-11-21] MEDS: TOBRAMYCIN OPHTH 5ML 5 ML BOTTLE LEFTEYE SCH ×4 (01:07→12:07)
[2021-11-21 04:00] VITALS: BP 159/69
--- NOTE | 2021-11-21 05:19 | NUR ---
RN ELISE PATTON FROM [facility] CONTACTED UNIT FOR UPDATE ON PATIENT RE: BRAIN MIDLINE TUMOR. STATUS UPDATE GIVEN. POSSIBLE TRANSFER FOR [facility]. KYLE WILL F/U WITH [facility] TO COORDINATE.
[2021-11-21 06:44] LABS: BASOPHILS % (AUTO) 0.4 % (0.0-2.0); EOSINOPHILS % (AUTO) 0.3 % (0.0-6.0); HEMATOCRIT 34 % (33-45); HEMOGLOBIN 11.5 g/dL (11.5-14.8); LYMPHOCYTES # (AUTO) 3.4 K/uL (0.8-4.8); LYMPHOCYTES % (AUTO) 40.3 % (20.0-44.0); MEAN CORPUSCULAR HGB CONC 34 g/dl (31.0-36.0); MEAN CORPUSCULAR VOLUME 92 fL (82-100); MONOCYTES # (AUTO) 0.6 K/uL (0.1-1.30); MONOCYTES % (AUTO) 6.6 % (2.0-12.0); NEUTROPHILS # (AUTO) 4.4 K/uL (1.8-8.9); NEUTROPHILS % (AUTO) 52.4 % (43.0-81.0); PLATELET COUNT (AUTO) 296 K/uL (150-450); RED BLOOD CELL COUNT(AUTO) 3.69 MIL/uL (4.0-5.2); WHITE BLOOD COUNT (AUTO) 8.4 K/uL (4.3-11.0)
[2021-11-21 07:02] LABS: CALCIUM, SERUM 8.3 mg/dL (8.5-10.1); CREATININE 0.8 mg/dL (0.6-1.3); MAGNESIUM 1.9 mg/dL (1.8-2.4); PHOSPHORUS 3.5 mg/dL (2.5-4.9); POTASSIUM 3.2 mmol/L (3.5-5.1)
--- NOTE | 2021-11-21 07:13 | NUR ---
RN CLOSING NOTE PATIENT ASLEEP IN BED. A/OX3. NO S/S OF DISTRESS, BREATHING ON RM AIR. LORI MIDLINE INTACT AND PATENT W/ NS 75ML/HR. TELE MONITOR REVEALS SR 63. SAFETY MEASURES IN PLACE: BED AT LOWEST POSITION, LOCKED, RAILS UP X3, CALL EDWARDS WITHIN REACH. PATIENT REPORT ENDORSED TO AND ACKNOWLEDGED BY RNALLEN.
[2021-11-21] MEDS: BLOOD SUGAR DIAGNOSTIC 1 EACH STRIP IN SCH ×2 (07:35→11:15)
--- NOTE | 2021-11-21 07:47 | NUR ---
RN OPENING NOTE RECEIVED PATIENT ASLEEP IN BED. A/OX3. NO S/S OF DISTRESS, BREATHING ON RM AIR SATING AT 96%. LORI MIDLINE INTACT AND PATENT W/ NS 75ML/HR. TELE MONITOR REVEALS SR 63. SAFETY MEASURES IN PLACE: BED AT LOWEST POSITION, LOCKED, RAILS UP X3, CALL EDWARDS WITHIN REACH. WILL CONTINUE TO MONITOR THROUGHOUT SHIFT.
[2021-11-21 08:00] VITALS: BP 150/73
[2021-11-21] MEDS ORDERED: POTASSIUM CHLORIDE 20 MEQ TAB.PRT.SR PO ONE (08:30)
[2021-11-21] MEDS: METFORMIN 500 MG TABLET PO SCH (08:39)
[2021-11-21] MEDS: LEVETIRACETAM (250 MG) 250 MG TABLET PO SCH (08:39)
[2021-11-21 08:40] VITALS: BP 150/73
[2021-11-21] MEDS: DOCUSATE SODIUM 100 MG CAPSULE PO SCH (08:40)
[2021-11-21] MEDS: AMLODIPINE BESYLATE 2.5 MG TABLET PO SCH (08:40)
[2021-11-21] MEDS: DEXAMETHASONE 1 MG TABLET PO SCH (08:40)
[2021-11-21] MEDS: FAMOTIDINE (20 MG) 20 MG TABLET PO SCH (08:41)
[2021-11-21] MEDS: MUPIROCIN OINT 2% 22 GM TUBE TP SCH (08:42)
--- NOTE | 2021-11-21 09:24 | NUR ---
RN NOTES COVID RAPID SAMPLE COLLECTED AND DELIVERED TO LAB.
--- NOTE | 2021-11-21 10:32 | NUR ---
RN NOTE COVID RAPID TEST NEGATIVE.
--- NOTE | 2021-11-21 11:12 | NUR ---
RN NOTE REPORT GIVEN TO PATRICK BOBO AT [facility] FOR TRANSFER OF PT.
[2021-11-21] MEDS: INSULIN REGULAR, HUMAN 100 UNIT/ML 3 ML VIAL SQ PRN (11:20)
[2021-11-21] MEDS: ENOXAPARIN SODIUM 40 MG/0.4 ML DISP.SYRIN SQ SCH (12:08)
--- NOTE | 2021-11-21 12:36 | NUR ---
TRANSFER/DC NOTES PT TRANSFERRED TO [facility] IN STABLE CONDITION. DC INSTRUCTIONS GIVEN TO AND EXPLAINED TO PT. PT VERBALIZED UNDERSTANDING. ALL PAPERWORK SIGNED AND COMPLETED. ALL BELONGINGS SENT, CARSON CATHETER REMOVED SAFELY WITHOUT ISSUE. MIDLINE STILL INTACT. NO COMPLICATIONS NOTED. REPORT CALLED TO JERAMIE NGUYEN AT [facility]. PT TO BE PLACED IN RM 7217. PT LEFT UNIT IN STABLE CONDITION VIA GURNEY. PT ENDORSED TO AMBULANCE CREW ACCORDINGLY,
== END 2021-11-21 13:54 | disposition short-term general hospital (02) | DRG 424 ==
LOC: ER 08:00 → TRANSITION 12:22 → TELE1 18:48 → TELE-TD 20:42 → TELE1 11-16 16:02
PROVIDERS: ADMIT Nurse Practitioner Acute Care; ATTEND Student in an Organized Health Care Education/Training Program
PROC: 05HD33Z Insertion of Infusion Device into Right Cephalic Vein, Percutaneous Approach (ICD-10-PCS; principal; 2021-11-15)
PROC: 05HF33Z Insertion of Infusion Device into Left Cephalic Vein, Percutaneous Approach (ICD-10-PCS; 2021-11-16)
DX: E23.7 Disorder of pituitary gland, unspecified (principal); G93.41 Metabolic encephalopathy; D68.59 Other primary thrombophilia; E44.1 Mild protein-calorie malnutrition; E88.09 Other disorders of plasma-protein metabolism, not elsewhere classified; G93.89 Other specified disorders of brain; E11.65 Type 2 diabetes mellitus with hyperglycemia; D72.829 Elevated white blood cell count, unspecified; E66.01 Morbid (severe) obesity due to excess calories; E87.6 Hypokalemia; Z20.822 Contact with and (suspected) exposure to COVID-19; Z79.84 Long term (current) use of oral hypoglycemic drugs; Z79.899 Other long term (current) drug therapy; Z68.41 Body mass index [BMI] 40.0-44.9, adult; H15.109 Unspecified episcleritis, unspecified eye; H54.61 Unqualified visual loss, right eye, normal vision left eye
CPT/HCPCS: 36410; 36415; 70450-TC; 70553-TC; 71045-TC; 80048-TC; 80061-TC; 80076-TC; 81001; 82962-TC; 83735-TC; 83880; 84100-TC; 84484-TC; 85025-TC; 85730-TC; 86850-TC; 87081-TC; 87086-TC; 95819-TC; 97116-TC; 97530-TC; A9575; C9803; G0378; J0360; J0456; J0696; J1650; J1815; J1953; J2060; J2405; J3475; J3480; J7030; J7060; J8540